=== PATIENT | male | born 1995 | race American Indian/Alaskan Native ===

== ENCOUNTER 2017-01-19 09:31 | Emergency (ER) | payer MEDICAID ==
[2017-01-19] MEDS ORDERED: Sodium Chloride 0.9% 1,000 ML IV ONE (09:58)
--- NOTE | 2017-01-19 10:08 | C.PDOC ---
History Of Present Illness 21-year-old male, PMHx includes Substance Abuse, presents to the emergency department with complaints of substance abuse. Patient states he is withdrawing from Percocet, experiencing abdominal pain, nausea, non-bloody/non-bilious vomiting, and diarrhea. Last use was two days ago. Denies fevers, headache/ dizziness, or any other associated symptoms. Time Seen by Provider: 01/19/17 09:54 Chief Complaint (Nursing): Substance Abuse History Per: Patient History/Exam Limitations: no limitations Onset/Duration Of Symptoms: Days Current Symptoms Are (Timing): Still Present Past Medical History Reviewed: Historical Data, Nursing Documentation, Vital Signs Vital Signs: Last Vital Signs Temp 98.2 F 01/19/17 10:53 Pulse 75 01/19/17 10:53 Resp 16 01/19/17 10:53 BP 110/70 01/19/17 10:53 Pulse Ox 98 01/19/17 10:57 - Medical History PMH: Asthma Family History: States: No Known Family Hx - Social History Hx Alcohol Use: Yes Hx Substance Use: Yes - Immunization History Hx Tetanus Toxoid Vaccination: No Hx Influenza Vaccination: No Hx Pneumococcal Vaccination: No Review Of Systems Constitutional: Negative for: Fever Respiratory: Negative for: Shortness of Breath Gastrointestinal: Positive for: Nausea, Vomiting, Abdominal Pain, Diarrhea Neurological: Negative for: Weakness, Numbness, Headache, Dizziness Physical Exam - Physical Exam Appears: Non-toxic, No Acute Distress Skin: Warm, Dry, No Rash Head: Atraumatic Eye(s): bilateral: Normal Inspection, PERRL Nose: Normal Oral Mucosa: Moist Lips: Normal Appearing Neck: Normal ROM Chest: Symmetrical Cardiovascular: Rhythm Regular, No Murmur Respiratory: Normal Breath Sounds, No Accessory Muscle Use Gastrointestinal/Abdominal: Soft, Tenderness (non-focal), No Guarding, No Rebound Extremity: Normal ROM Neurological/Psych: Oriented x3, Normal Speech, Other (No focal deficit) ED Course And Treatment - Laboratory Results Result Diagrams: 01/19/17 10:35 01/19/17 10:35 O2 Sat by Pulse Oximetry: 98 Medical Decision Making Medical Decision Making: pt requesting detox bed. no bed avail. mother and pt request labs and iv antiemetics. 1046: pt now does not wish to wait for labs results, reassessment. signs AMA. The patient declines to have further medical evaluation and treatment and wishes to leave the Emergency Department. This action is against my medical advice to the patient, and with informed refusal. The patient was told that evaluation and treatment are necessary and a full explanation of the rationale was given. The risks of leaving were explained to the patient and include, but are not limited to, worsening of known or currently unknown conditions, permanent disability and from undiagnosed or untreated conditions The patient has the capacity to make this informed decision and understands the clinical situation and my explanation of the risks of leaving. The patient voluntarily accepts these risks, and a signed AMA form documenting our conversation was obtained. The patient was given the opportunity to ask questions and reconsider. The patient was encouraged to return to the Emergency Department at any time for further care. Disposition - Disposition Referrals: Shashi Armendariz MD [Staff Provider] - [facility] [Outside] [facility] [Outside] Disposition: AGAINST MEDICAL ADVICE Disposition Time: 10:47 Condition: UNKNOWN Additional Instructions: return to er with worsening symptoms or concerns. please call for detox bed. Instructions: Narcotic Abuse (ED), Acute Abdominal Pain (ED), Opioid Withdrawal (ED) Forms: [employer] (Italian) - Clinical Impression Clinical Impression: Drug abuse, Abdominal pain, Narcotic withdrawal - Scribe Statement The provider has reviewed the documentation as recorded by the Scribe (Tu Reyes) All medical record entries made by the Scribe were at my direction and personally dictated by me. I have reviewed the chart and agree that the record accurately reflects my personal performance of the history, physical exam, medical decision making, and the department course for this patient. I have also personally directed, reviewed, and agree with the discharge instructions and disposition.
[2017-01-19] MEDS ORDERED: Sodium Chloride 0.9% 1,000 ML ONE (10:10)
[2017-01-19 10:45] LABS: BASO % 0.6 % (0.0-2.0); EOS % 0.9 % (0.0-4.0); HEMATOCRIT 44.3 % (35.0-51.0); LYMPH # 1.2 K/uL (1.0-4.3); LYMPH % 27.8 % (20.0-40.0); MEAN CELL VOLUME 89.5 fL (80.0-94.0); MEAN CORPUSCULAR HGB CONC 33.5 g/dL (33.0-37.0); MEAN PLATELET VOLUME 9.6 fL (7.2-11.7); MONO # 0.3 K/uL (0.0-0.8); MONO % 6.9 % (0.0-10.0); RED CELL DISTRIBUTION WIDTH 12.9 % (11.5-14.5); WHITE BLOOD COUNT 4.3 K/uL (4.8-10.8)
[2017-01-19 10:49] LABS: CHLORIDE 97 mmol/L (98-107); POTASSIUM 4.1 mmol/L (3.6-5.2); SODIUM 136 mmol/L (132-148)
[2017-01-19 10:51] LABS: ALB/GLOB RATIO 1.1 (1.0-2.1); ALKALINE PHOSPHATASE 47 U/L (38-126); AST/SGOT 34 U/L (17-59); BILIRUBIN,TOTAL 1.7 mg/dL (0.2-1.3); BLOOD UREA NITROGEN 9 mg/dL (9-20); CARBON DIOXIDE 27 mmol/L (22-30); GFR AFRICAN-AMERICAN > 60; INR 1.1; TOTAL PROTEIN 9.6 g/dL (6.3-8.3)
[2017-01-19 10:52] LABS: ALCOHOL SERUM < 10 mg/dl (0-10); ALT/SGPT 48 U/L (21-72); CALCIUM 9.9 mg/dl (8.6-10.4); GLUCOSE,RANDOM 73 mg/dL (75-110)
[2017-01-19 10:54] VITALS: BP 110/70; PULSE 75; RESP 16; TEMP 98.2
[2017-01-19 10:58] VITALS: O2SAT 98
== END 2017-01-19 10:53 | disposition left against medical advice (07) ==
LOC: C.ER 09:31
DX: F19.939 Other psychoactive substance use, unspecified with withdrawal, unspecified (principal); R10.9 Unspecified abdominal pain
CPT/HCPCS: 80053; 80320; 83690; 85025; 85610; 85730; 96361; 96374; 96375; 99284; C9113; J2405; J7040